=== PATIENT | female | born 2000 | race Caucasian/White ===

== ENCOUNTER 2020-06-28 10:47 | Emergency (ER) | payer MEDICAID ==
--- NOTE | 2020-06-28 11:40 | EDM.PDOC ---
ED HPI GENERAL MEDICAL PROBLEM - General Chief Complaint: CLINICAL ESTHETICIAN Problem Stated Complaint: UNDER WEEKS PG CRAMPING Time Seen by Provider: 06/28/20 11:20 Source of Information: Reports: Patient History Limitations: Reports: No Limitations - History of Present Illness INITIAL COMMENTS - FREE TEXT/NARRATIVE: 20-year-old female with her first , her last period was May 14 making her roughly 6 weeks gestation has had 3 or 4 days of intermittent intense pelvic pain. At times it wakes her from sleep, but at other times it is gone. No fevers or chills, no urinary symptoms, it radiated to her back 1 time. No recent trauma, no other symptoms. It seems to be mostly on the left side. Onset: Gradual Duration: Day(s): (4 days of symptoms, gradually worsening) Location: Reports: Abdomen, Pelvis Improves with: Reports: None Worsens with: Reports: None Context: Reports: Other (Symptoms wax and wane, not related to activity or position) Associated Symptoms: Reports: Other (She has also been nauseous the last 2 weeks which she attributed to her , 1 episode of vomiting) Lower Abdominal Pain Score (Numeric/FACES): 7 - Related Data Allergies Allergy/AdvReac Type Severity Reaction Status Date / Time No Known Allergies Allergy Verified 06/28/20 11:15 Home Meds: Home Meds NK [No Known Home Meds] 06/28/20 [History] Past Medical History Respiratory History: Reports: Asthma CLINICAL ESTHETICIAN History: Reports: Psychiatric History: Reports: Anxiety, Depression - Past Surgical History HEENT Surgical History: Reports: Tonsillectomy Social & Family History - Tobacco Use Tobacco Use Status *Q: Never Tobacco User - Caffeine Use Caffeine Use: Reports: Coffee, Tea - Recreational Drug Use Recreational Drug Use: No ED ROS GENERAL - Review of Systems Review Of Systems: See Below Constitutional: Denies: Fever, Chills HEENT: Reports: No Symptoms Respiratory: Denies: Shortness of Breath Cardiovascular: Denies: Chest Pain GI/Abdominal: Reports: Abdominal Pain, Nausea, Vomiting. Denies: Diarrhea, Hematochezia, Melena : Reports: Other (History of kidney stones but no current symptoms) Skin: Reports: No Symptoms Neurological: Reports: No Symptoms ED EXAM, GI/ABD - Physical Exam Exam: See Below Exam Limited By: No Limitations General Appearance: Alert, No Apparent Distress Eyes: Bilateral: Normal Appearance Head: Atraumatic Respiratory/Chest: No Respiratory Distress GI/Abdominal Exam: Soft, Non-Tender. No: Guarding, Rebound Neurological: Alert, Oriented Psychiatric: Normal Affect, Normal Mood Skin Exam: Warm, Dry Course - Vital Signs Last Recorded V/S: Last Vital Signs Temp 98.2 F 06/28/20 11:13 Pulse 91 06/28/20 11:13 Resp 16 06/28/20 11:13 BP 146/87 H 06/28/20 11:13 Pulse Ox 98 06/28/20 11:13 - Orders/Labs/Meds Labs: Laboratory Tests 06/28/20 06/28/20 06/28/20 Range/Units 11:34 11:44 11:44 WBC 10.1 (4.5-11.0) K/uL RBC 4.75 (3.30-5.50) M/uL Hgb 13.1 (12.0-15.0) g/dL Hct 40.7 (36.0-48.0) % MCV 86 (80-98) fL MCH 28 (27-31) pg MCHC 32 (32-36) % Plt Count 366 (150-400) K/uL Neut % (Auto) 69 H (36-66) % Lymph % (Auto) 21 L (24-44) % Cass % (Auto) 10 H (2-6) % Eos % (Auto) 1 L (2-4) % Baso % (Auto) 0 (0-1) % HCG, Quant 41203 H (0-6) mIU/mL Urine Color Yellow (YELLOW) Urine Appearance Slightly cloudy A (CLEAR) Urine pH 6.0 (5.0-8.0) Ur Specific [place] >= 1.030 (1.008-1.030) Urine Protein Negative (NEGATIVE) mg/dL Urine Glucose (UA) Negative (NEGATIVE) mg/dL Urine Ketones Negative (NEGATIVE) mg/dL Urine Occult Blood Negative (NEGATIVE) Urine Nitrite Negative (NEGATIVE) Urine Bilirubin Negative (NEGATIVE) Urine Urobilinogen 0.2 (0.2-1.0) EU/dL Ur Leukocyte Esterase Negative (NEGATIVE) Urine RBC 0-5 (0-5) Urine WBC 0-5 (0-5) Ur Epithelial Cells Moderate Amorphous Sediment Not seen Urine Bacteria Few Urine Mucus Moderate - Re-Assessments/Exams Free Text/Narrative Re-Assessment/Exam: 06/28/20 11:39 Patient's abdominal exam is relatively benign at this time. A UA was obtained, also a CBC and quantitative beta-hCG. If levels are over 2500, a pelvic ultrasound will be ordered. 06/28/20 12:52 CBC and urine were normal, hCG was around 60,000. Pelvic ultrasound was ordered to rule out ectopic . 06/28/20 13:55 Ultrasound was reassuring, intrauterine with good blood flow to both ovaries. Patient remained relatively pain-free while in the emergency room. She was reassured and the images will be sent to [facility] for her first appointment in a few weeks. Departure - Departure Time of Disposition: 14:17 Disposition: Home, Self-Care 01 Clinical Impression: Pelvic pain during - Discharge Information Instructions: Pelvic Pain, Female, [id number] Referrals: PCP,None [Primary Care Provider] - Forms: ED Department Discharge Care Plan Goals: Rest for the next few days, increase activity as tolerated and recheck with your primary as scheduled. Return sooner if worsening such as bleeding or increased pain. Sepsis Event Note (ED) - Evaluation Sepsis Screening Result: No Definite Risk
--- NOTE | 2020-06-28 14:47 | US ---
INDICATION: rule out ectopic COMPARISON: None FINDINGS: Real-time transabdominal and transvaginal images were obtained through the pelvis with Doppler analysis. Uterus measures 7.2 x 6.1 x 4.1 cm. There is a gestational sac in the endometrial cavity. This measures 2.2 cm in mean sac diameter correlating to 7 week 2 day gestation. There is a pole measuring 4.4 mm. This correlates to a 6 week 1 day gestation. There is heart activity at 120 bpm. There is a 3 mm yolk sac. No free fluid is identified in the pelvis. Ovaries are free of mass IMPRESSION: Single viable intrauterine at 6 weeks 1 day by crown-rump length ESTEFANY is 02/20/2021 No pelvic mass or free fluid collections
== END 2020-06-28 14:17 | disposition home or self-care (01) ==
LOC: JP.ED 10:47
DX: O99.891 Other specified diseases and conditions complicating pregnancy (principal); R10.2 Pelvic and perineal pain; O99.511 Diseases of the respiratory system complicating pregnancy, first trimester; J45.909 Unspecified asthma, uncomplicated; Z3A.01 Less than 8 weeks gestation of pregnancy
CPT/HCPCS: 36415; 76801; 76801-26; 76817; 76817-26; 81001; 84702; 85025; 93976; 93976-26; 99284-25